=== PATIENT | female | born 1955 | race American Indian/Alaskan Native ===

== ENCOUNTER 2017-08-18 09:23 | Outpatient (CLI) | payer MEDICARE ==
--- NOTE | 2017-08-18 10:49 | Ultrasound Report ---
ULTRASOUND RENAL BILATERAL HISTORY: Hypertension. TECHNIQUE: transabdominal ultrasound with color Doppler interrogation. FINDINGS: Scans of the kidneys show normal renal contours. There is normal central calyceal clustering and good preservation of the cortical thickness. There is no evidence of mass or hydronephrosis. The views of the bladder and the region of the ureters appear normal. IMPRESSION: Unremarkable renal ultrasound.
== END 2017-08-18 09:24 | disposition home or self-care (01) ==
LOC: US 09:23
PROVIDERS: ATTEND Specialist
DX: I10 Essential (primary) hypertension (principal); Z87.891 Personal history of nicotine dependence
CPT/HCPCS: 76770

== ENCOUNTER 2018-05-18 11:01 | Outpatient (CLI) | payer MEDICARE | END 2018-05-18 11:02 | disposition home or self-care (01) | LOC: ECHO 11:01 | PROVIDERS: ATTEND Nurse Practitioner Family | DX: I35.1 Nonrheumatic aortic (valve) insufficiency (principal); R42 Dizziness and giddiness | CPT/HCPCS: 93306 ==

== ENCOUNTER 2018-12-12 10:49 | Outpatient (CLI) | payer MEDICARE ==
--- NOTE | 2018-12-13 10:29 | Mammography Report ---
BILATERAL DIGITAL SCREENING MAMMOGRAM with CAD: 12/12/18 10:49:00 CLINICAL: Routine screening. COMPARISON:[facility] 11/24/17 FINDINGS: The breasts are mostly fatty. A left lower inner posterior circumscribed nodule is smaller compared to the previous exam. No mass, architectural distortion or suspicious calcifications. IMPRESSION: No mammographic evidence of malignancy. BI-RADS CATEGORY: 2 -- Benign RECOMMENDATION: Routine mammographic screening in one year. COMMENT: Patient follow-up letters are generated by our [employer] application.
== END 2018-12-12 10:50 | disposition home or self-care (01) ==
LOC: SPVWC 10:49
PROVIDERS: ATTEND Internal Medicine
DX: Z12.31 Encounter for screening mammogram for malignant neoplasm of breast (principal)
CPT/HCPCS: 77067

== ENCOUNTER 2019-08-22 09:40 | Outpatient (CLI) | payer MEDICARE ==
--- NOTE | 2019-08-22 13:33 | Nuclear Medicine Report ---
Gastric emptying Scan HISTORY: T18.2XXA) GASTIC BEZOAR. TECHNIQUE: Patient was given 1.15 mCi of technetium sulfur colloid mixed with oatmeal. COMPARISON: None FINDINGS: Gastric emptying was approximately 30% by 90 minutes which is abnormal. IMPRESSION: Abnormal exam. Signer Name: Robb Waldron MD Signed: 08/22/2019 1:29 PM Workstation Name: [id number]
== END 2019-08-22 09:41 | disposition home or self-care (01) ==
LOC: NM 09:40
PROVIDERS: ATTEND Internal Medicine Gastroenterology
DX: T18.2XXA Foreign body in stomach, initial encounter (principal); Y93.89 Activity, other specified; Y92.89 Other specified places as the place of occurrence of the external cause; Y99.8 Other external cause status
CPT/HCPCS: 78264; A9541

== ENCOUNTER 2019-12-17 08:24 | Outpatient (CLI) | payer MEDICARE ==
--- NOTE | 2019-12-17 12:57 | Mammography Report ---
DIGITAL SCREENING MAMMOGRAM WITH CAD, 12/17/2019 INDICATION: Routine screening mammography. TECHNIQUE: Digital bilateral 2D mammography was obtained in the craniocaudal and mediolateral obliq ue projections. This examination was interpreted with the benefit of Computer-Aided Detection analysi s. COMPARISON: 12/12/2018 FINDINGS: Breast Density: The breasts are almost entirely fatty. There is no evidence of dominant mass, suspicious calcifications or architectural distortion in eithe r breast. IMPRESSION: No mammographic evidence of malignancy. Follow up recommendation: Routine yearly BI-RADS Category 2: Benign. A "normal" or negative report should not discourage follow up or biopsy of a clinically significant f inding. A written summary of these findings will be mailed to the patient. The patient will be entered into a mammography reporting system which will generate a reminder letter for the patient's next appointmen t at the appropriate interval. The [employer] recommends yearly mammograms starting at age 40 and continuing as l destin as a woman is in good health. Breast MRI is recommended for women with an approximate 20-25% or greater lifetime risk of breast cancer, including women with a strong family history of breast or ova miriam cancer or who have been treated for Hodgkin's disease. Signer Name: Alphonse La MD Signed: 12/17/2019 12:52 PM Workstation Name: [id number]
== END 2019-12-17 08:25 | disposition home or self-care (01) ==
LOC: SPVWC 08:24
PROVIDERS: ATTEND Internal Medicine
DX: Z12.31 Encounter for screening mammogram for malignant neoplasm of breast (principal); N64.89 Other specified disorders of breast
CPT/HCPCS: 77067

== ENCOUNTER 2021-03-11 09:29 | Outpatient (CLI) | payer MEDICARE ==
--- NOTE | 2021-03-11 10:52 | Ultrasound Report ---
BILATERAL DIGITAL DIAGNOSTIC MAMMOGRAM WITH CAD , 03/11/2021 RIGHT LIMITED BREAST ULTRASOUND CLINICAL INFORMATION / INDICATION: The patient reports focal pain in the lateral right breast. TECHNIQUE: Digital bilateral mammographic imaging was performed. Limited ultrasound was performed. Th is examination was interpreted with the benefit of Computer-Aided Detection (CAD) analysis. COMPARISON: Screening mammogram, 12/17/2019 FINDINGS: Breast Density: The breasts are almost entirely fatty. MAMMOGRAPHIC FINDINGS: No dominant mass, suspicious calcifications, or architectural distortion in ei ther breast. There is no focal abnormality to account for the patient's breast pain. Postsurgical kyle nges from bilateral breast reduction are noted. ULTRASOUND FINDINGS: Targeted ultrasound evaluation was performed of the area of interest. Sonograp hic evaluation of the lateral right breast in the patient's area of pain demonstrates no suspicious m ass, shadowing or cyst. There is no focal abnormality to account for the patient's pain. IMPRESSION: No mammographic or sonographic evidence of malignancy. Clinical correlation is recommende d for the patient's right breast pain. Follow up recommendation: Clinical exam BI-RADS Category 2: Benign. A "normal" or negative report should not discourage follow up or biopsy of a clinically significant f inding. A written summary of these findings will be mailed to the patient. The patient will be entered into a mammography reporting system which will generate a reminder letter for the patient's next appointmen t at the appropriate interval. According to the [employer], yearly mammograms are recommended starting at age 40 and continuing as long as a woman is in good health. Breast MRI is recommended for women with an luis angel roximately 20-25% or greater lifetime risk of breast cancer, including women with a strong family his tory of breast or ovarian cancer and women who have been treated for Hodgkin's disease. Signer Name: Opal Ponce MD Signed: 03/11/2021 10:47 AM Workstation Name: [email or web address]
== END 2021-03-11 09:30 | disposition home or self-care (01) ==
LOC: SPVWC 09:29
PROVIDERS: ATTEND Internal Medicine
DX: N64.4 Mastodynia (principal)
CPT/HCPCS: 77066

== ENCOUNTER 2022-04-06 11:17 | Outpatient (CLI) | payer MEDICARE ==
--- NOTE | 2022-04-08 12:42 | Mammography Report ---
DIGITAL SCREENING MAMMOGRAM WITH CAD, 04/06/2022 CLINICAL INFORMATION / INDICATION: Routine screening mammography. TECHNIQUE: Digital bilateral 2D mammography was obtained in the craniocaudal and mediolateral obliqu e projections. This examination was interpreted with the benefit of Computer-Aided Detection analysis . COMPARISON: 12/17/2019 FINDINGS: Breast Density: The breasts are almost entirely fatty. No dominant mass, suspicious calcifications, or architectural distortion in either breast. Bilateral reduction mammoplasty. No significant interval change. IMPRESSION: No mammographic evidence of malignancy. Follow up recommendation: Routine yearly screening mammogram. BI-RADS Category 2: BENIGN. A "normal" or negative report should not discourage follow up or biopsy of a clinically significant f inding. A written summary of these findings will be mailed to the patient. The patient will be entered into a mammography reporting system which will generate a reminder letter for the patient's next appointmen t at the appropriate interval. The [employer] recommends yearly mammograms starting at age 40 and continuing as l destin as a woman is in good health. Breast MRI is recommended for women with an approximate 20-25% or greater lifetime risk of breast cancer, including women with a strong family history of breast or ova miriam cancer or who have been treated for Hodgkin's disease. Signer Name: Ashli Merlos MD Signed: 04/08/2022 12:37 PM Workstation Name: [email or web address]
== END 2022-04-06 11:18 | disposition home or self-care (01) ==
LOC: SPVWC 11:17
PROVIDERS: ATTEND Surgery
DX: Z12.31 Encounter for screening mammogram for malignant neoplasm of breast (principal)
CPT/HCPCS: 77067